=== PATIENT | male | born 1940 | race Caucasian/White ===

== ENCOUNTER 2022-11-18 06:19 | Observation (INO) | payer OTHER ==
[2022-11-18 06:39] VITALS: BMI 28.4
[2022-11-18] MEDS ORDERED: ACETAMINOPHEN 325 MG TABLET (FP) PO ONE (06:53)
[2022-11-18 07:38] LABS: ALBUMIN 3.7 g/dl (3.4-5.0); BILIRUBIN,TOTAL 0.8 mg/dl (0.2-1); CALCIUM 8.8 mg/dl (8.5-10); CREATININE 1.2 mg/dl (0.55-1.3); HEMATOCRIT 36.1 % (35.4-49); HEMOGLOBIN 12.3 G/dL (11.7-16.9); MCH 30.5 pg (25.7-33.7); MEAN CELL VOLUME 89.6 fl (80-96); MEAN PLT VOLUME 6.9 fl (7.5-11.1); PLATELET COUNT 228.9 10^3/uL (134-434); RBC 4.03 10^6/uL (4.00-5.60); RDW 14.5 % (11.9-15.9); TOT PROT 6.4 g/dl (6.4-8.2); WHITE BLOOD COUNT 9.6 10^3/uL (4.0-10.8)
[2022-11-18 07:44] LABS: PLATELET ESTIMATE ADEQUATE
[2022-11-18] MEDS ORDERED: ACETAMINOPHEN 325 MG TABLET (FP) PO PRN (14:29)
[2022-11-18 18:28] LABS: CHOLESTEROL 135 mg/dl (50-200); HDL CHOLESTEROL 61 mg/dl (40-60); LDL CHOLESTEROL (ONLY DFH) 60 mg/dl (5-100); TRIGLYCERIDES 68 mg/dl (0-150)
[2022-11-18 18:37] LABS: ACTIVATED PTT 30.5 SECONDS (25.2-36.5); INR 1.11 (0.83-1.09); PROTHROMBIN TIME (PATIENT) 12.8 SEC (9.7-13.0)
[2022-11-19 01:49] VITALS: RESP 18
[2022-11-19 08:31] LABS: ALBUMIN 3.6 g/dl (3.4-5.0); BILIRUBIN,TOTAL 0.8 mg/dl (0.2-1); CALCIUM 8.8 mg/dl (8.5-10); CREATININE 1.1 mg/dl (0.55-1.3); TOT PROT 6.4 g/dl (6.4-8.2)
[2022-11-19 10:09] LABS: BASO % 0.4 % (0-2.0); EOS % 1.2 % (0-4.5); HEMATOCRIT 37.1 % (35.4-49); HEMOGLOBIN 12.4 GM/dL (11.7-16.9); LYMPH % 15.9 % (8-40); MCH 29.5 pg (25.7-33.7); MCHC 33.3 g/dl (32.0-35.9); MEAN CELL VOLUME 88.4 fl (80-96); MEAN PLT VOLUME 6.9 fl (7.5-11.1); MONO % 7.4 % (3.8-10.2); NEUT % 75.1 % (42.8-82.8); PLATELET COUNT 280 10^3/uL (134-434); RDW 13.7 % (11.9-15.9)
[2022-11-19] MEDS ORDERED: SODIUM CHLORIDE 1 GM TABLET PO ONE (14:15)
[2022-11-20 05:37] VITALS: BP 132/72; PULSE 76; TEMP 97.8
== END 2022-11-20 14:15 | disposition home or self-care (01) ==
LOC: FER 06:19 → FM/S 09:14 → UNDOADMOB 09:14 → INTOOBSV 14:25 → OBSVTOIN 14:25 → FM/S 20:39
PROC: 0HQ0XZZ Repair Scalp Skin, External Approach (ICD-10-PCS; principal; 2022-11-18)
DX: S01.91XA Laceration without foreign body of unspecified part of head, initial encounter (principal); R55 Syncope and collapse; W18.39XA Other fall on same level, initial encounter; Y93.89 Activity, other specified; Y92.092 Bedroom in other non-institutional residence as the place of occurrence of the external cause; Z87.891 Personal history of nicotine dependence; R31.9 Hematuria, unspecified; R41.9 Unspecified symptoms and signs involving cognitive functions and awareness; N40.0 Benign prostatic hyperplasia without lower urinary tract symptoms; K21.9 Gastro-esophageal reflux disease without esophagitis; E87.1 Hypo-osmolality and hyponatremia; E78.5 Hyperlipidemia, unspecified; I10 Essential (primary) hypertension
CPT/HCPCS: 0241U-QW; 12001-25; 36415; 70450-TC; 71045-TC-FY; 72125-TC; 73030-TC-LT-FY; 80053; 80061; 82607; 82746; 82962; 83036; 83880; 84439; 84443; 84484; 85025; 85027; 85610; 85730; 86780; 93005; 93306-TC; 93880-TC; 97116-GP; 97162-GP; 99285-25; G0378

== ENCOUNTER 2022-12-09 11:46 | Emergency (ER) | payer OTHER ==
[2022-12-09 11:58] VITALS: BP 137/81; PULSE 79; RESP 20; TEMP 98.3; BMI 25.0
== END 2022-12-09 12:20 | disposition home or self-care (01) ==
LOC: FER 11:46
DX: S01.01XA Laceration without foreign body of scalp, initial encounter (principal); W19.XXXA Unspecified fall, initial encounter; Z48.02 Encounter for removal of sutures
CPT/HCPCS: 99281-25

== ENCOUNTER 2022-12-27 19:03 | Emergency (ER) | payer OTHER ==
[2022-12-27 19:46] VITALS: BP 126/78; PULSE 82; RESP 16; TEMP 97.7; BMI 23.5
[2022-12-27] MEDS ORDERED: oxyCODONE HCL 5 MG TABLET PO ONE (20:18)
[2022-12-27] MEDS ORDERED: oxyCODONE HCL 5 MG TABLET ONE (20:38)
[2022-12-27] MEDS ORDERED: LIDOCAINE PATCH REMOVAL MC SCH (22:00)
[2022-12-27] MEDS ORDERED: ACETAMINOPHEN 325 MG TABLET (FP) PO ONE (22:36)
[2022-12-27] MEDS ORDERED: LIDOCAINE 5% TOPICAL PATCH TP ONE (22:36)
[2022-12-27] MEDS ORDERED: LIDOCAINE 5% TOPICAL PATCH ONE (23:06)
[2022-12-27] MEDS ORDERED: ACETAMINOPHEN 325 MG TABLET (FP) ONE (23:06)
== END 2022-12-28 09:46 | disposition home or self-care (01) ==
LOC: JER 19:03
DX: S20.212A Contusion of left front wall of thorax, initial encounter (principal); W19.XXXA Unspecified fall, initial encounter
CPT/HCPCS: 70450-TC; 71250-TC; 72125-TC; 99285-25

== ENCOUNTER 2022-12-29 03:52 | Emergency (ER) | payer OTHER ==
[2022-12-29 04:04] VITALS: BP 119/82; PULSE 85; RESP 16; TEMP 98.7; BMI 27.8
[2022-12-29] MEDS ORDERED: ACETAMINOPHEN 500 MG TABLET (FP) PO ONE (04:38)
[2022-12-29] MEDS ORDERED: ACETAMINOPHEN 500 MG TABLET (FP) ONE (04:38)
== END 2022-12-29 11:28 | disposition home or self-care (01) ==
LOC: FER 03:52
DX: M25.512 Pain in left shoulder (principal); W19.XXXA Unspecified fall, initial encounter
CPT/HCPCS: 71046-TC-FY; 73000-TC-LT-FY; 73030-TC-LT-FY; 99285-25

== ENCOUNTER 2023-02-24 16:00 | Emergency (ER) | payer OTHER ==
[2023-02-24 16:19] VITALS: BMI 27.6
[2023-02-24] MEDS ORDERED: morphine CARPU-JECT 4 MG/1 ML DISP.SYRIN IVPUSH ONE (18:38)
[2023-02-24] MEDS ORDERED: SODIUM CHLORIDE 0.9% 500 ML INFUS.BAG IV ONE (18:38)
[2023-02-24] MEDS ORDERED: SODIUM CHLORIDE 0.9% 1000 ML INFUS.BAG IV ONE (18:42)
[2023-02-24] MEDS ORDERED: morphine SULFATE 4 MG/ML VIAL ONE ×2 (18:49→20:39)
[2023-02-24 18:58] LABS: HEMATOCRIT 38.2 % (35.4-49); HEMOGLOBIN 12.9 G/dL (11.7-16.9); MCHC 33.6 g/dl (32.0-35.9); MEAN CELL VOLUME 95.3 fl (80-96); MEAN PLT VOLUME 7.5 fl (7.5-11.1); PLATELET COUNT 235.5 10^3/uL (134-434); RBC 4.01 10^6/uL (4.00-5.60); RDW 14.7 % (11.9-15.9); WHITE BLOOD COUNT 9.6 10^3/uL (4.0-10.8)
[2023-02-24 19:15] LABS: ALBUMIN 3.7 g/dl (3.4-5.0); BILIRUBIN,TOTAL 0.4 mg/dl (0.2-1); CALCIUM 8.7 mg/dl (8.5-10); CREATININE 1.3 mg/dl (0.55-1.3); POTASSIUM 3.9 mmol/L (3.5-5.1); TOT PROT 6.9 g/dl (6.4-8.2)
[2023-02-24 19:49] LABS: PLATELET ESTIMATE ADEQUATE
[2023-02-24] MEDS ORDERED: morphine CARPU-JECT 4 MG/1 ML DISP.SYRIN IVPUSH STA (20:29)
[2023-02-24] MEDS ORDERED: HYDROmorphone HCl 2 MG/ML VIAL IVPUSH STA (20:47)
[2023-02-24] MEDS ORDERED: HYDROmorphone HCL/PF 1 MG/ML VIAL ONE (20:48)
[2023-02-25] MEDS ORDERED: morphine CARPU-JECT 4 MG/1 ML DISP.SYRIN IVPUSH ONE (07:38)
[2023-02-25] MEDS ORDERED: morphine SULFATE 4 MG/ML VIAL IVPUSH ONE (08:15)
[2023-02-25] MEDS ORDERED: morphine SULFATE 4 MG/ML VIAL ONE (08:24)
[2023-02-25 17:59] VITALS: BP 150/82; PULSE 106; RESP 18; TEMP 99.2
== END 2023-02-25 19:41 | disposition home or self-care (01) ==
LOC: FER 16:00
PROC: 3E033GC Introduction of Other Therapeutic Substance into Peripheral Vein, Percutaneous Approach (ICD-10-PCS; principal; 2023-02-24)
PROC: 3E033GC Introduction of Other Therapeutic Substance into Peripheral Vein, Percutaneous Approach (ICD-10-PCS; 2023-02-24)
PROC: 3E033GC Introduction of Other Therapeutic Substance into Peripheral Vein, Percutaneous Approach (ICD-10-PCS; 2023-02-24)
PROC: 3E033GC Introduction of Other Therapeutic Substance into Peripheral Vein, Percutaneous Approach (ICD-10-PCS; 2023-02-25)
PROC: 3E033GC Introduction of Other Therapeutic Substance into Peripheral Vein, Percutaneous Approach (ICD-10-PCS; 2023-02-25)
DX: R07.9 Chest pain, unspecified (principal); R10.32 Left lower quadrant pain; Z20.822 Contact with and (suspected) exposure to COVID-19
CPT/HCPCS: 0241U-QW; 36415; 71260-TC; 74177-TC; 80053; 81003; 81015; 84484; 85025; 93005; 99285-25; C9803-CS; U0003; U0005